=== PATIENT | female | born 1990 | race African-American/Black ===

== ENCOUNTER 2017-01-07 09:08 | Emergency (ER) | payer OTHER ==
[2017-01-07] MEDS ORDERED: Famotidine TAB* 20 MG PO ONE (09:28)
[2017-01-07] MEDS ORDERED: Al Hydrox/Mg Hydrox/Simet LIQ* 30 ML UDC PO ONE ×2 (09:28→09:58)
--- NOTE | 2017-01-07 09:55 | ED ---
Abdominal Pain/Female - HPI Summary HPI Summary: Patient presents to the ED with epigastric pain and nausea x 3 days which is intermittent. She was seen at [facility] and given Pepcid and zofran. She continues with pain and nausea despite the medication. She is concerned with another pathology. Denies diarrhea, constipation. Pain is not worse or better with food. Denies radiation of pain to the back or otherwise. Denies urinary symptoms, pain in all 4 quadrants, or back pain. Denies fevers, sweats or chills. Medication has been improving her nausea, but not the pain. She is unable to describe the pain other than intermittent and sharp. Not worse or better with position. She has been otherwise healthy. Denies hx of GERD or cardiac problems. She takes no other medications. - History of Current Complaint Chief Complaint: EDAbdPain Stated Complaint: ABD PAIN Time Seen by Provider: 01/07/17 09:15 Hx Obtained From: Patient ?: No Onset/Duration: Sudden Onset Timing: Hours Severity Initially: Moderate Severity Currently: Moderate Pain Intensity: 7 Pain Scale Used: 0-10 Numeric Location: Epigastric Radiates: No Character: Sharp Aggravating Factor(s): Nothing Alleviating Factor(s): Nothing Associated Signs and Symptoms: Positive: Nausea, Vomiting - Risk Factors Ectopic Risk Factor: Negative Ovarian Torsion Risk Factor: Negative Allergies/Adverse Reactions: Allergies Allergy/AdvReac Type Severity Reaction Status Date / Time No Known Allergies Allergy Verified 01/07/17 09:14 Home Medications: Home Medications Control 1 tab PO DAILY 01/07/17 [History Confirmed 01/07/17] PMH/Surg Hx/FS Hx/Imm Hx Previously Healthy: Yes - Immunization History Hx Pertussis Vaccination: No Immunizations Up to Date: Unable to Obtain/Confirm Infectious Disease History: No Infectious Disease History: Denies: Traveled Outside the [place] in Last 30 Days - Social History Occupation: Employed Full-time Lives: With Family Alcohol Use: Weekly Alcohol Amount: 3-4 times a week 3-4 drinks at a time Hx Substance Use: No Substance Use Type: Reports: None Hx Tobacco Use: No Smoking Status (MU): Never Smoked Tobacco Review of Systems Constitutional: Negative Negative: Fever, Chills, Fatigue Eyes: Negative ENT: Negative Cardiovascular: Negative Positive: Abdominal Pain - epigastric Genitourinary: Negative Positive: no symptoms reported, see HPI Musculoskeletal: Negative Negative: Arthralgia, Myalgia, Decreased ROM Neurological: Negative Negative: Headache, Weakness, Paresthesia Psychological: Normal All Other Systems Reviewed And Are Negative: Yes Physical Exam - Summary Physical Exam Summary: VITAL SIGNS: Reviewed. GENERAL: Patient is a well-developed and nourished female who is lying comfortable in the stretcher. ~Patient is not in any acute respiratory distress. HEAD AND FACE: Normocephalic and atraumatic. EYES: PERRLA, EOMI x 2, No injected conjunctiva. EARS: Hearing grossly intact. Ear canals and tympanic membranes are WNL. MOUTH: Oropharynx within normal limits. NECK: Supple, trachea is midline, no adenopathy, no JVD. CHEST: Symmetric, no tenderness at palpation LUNGS: Clear to auscultation bilaterally. No wheezing or crackles. CVS: RRR, S1 and S2 present, no murmurs or gallops appreciated. ABDOMEN: Soft, non-tender. No signs of distention. Positive bowel sounds. No rebound no guarding, and no masses palpated. No abdominal bruit or pulsations. EXTREMITIES: FROM in all major joints, no edema, no cyanosis or clubbing. NEURO: Alert and oriented x 3. No acute neurological deficits. Speech is normal. SKIN: Dry and warm Triage Information Reviewed: Yes Vital Signs On Initial Exam: Initial Vitals Temp Pulse Resp BP Pulse Ox 97.5 F 91 20 132/56 100 01/07/17 09:11 01/07/17 09:11 01/07/17 09:11 01/07/17 09:11 01/07/17 09:11 Vital Signs Reviewed: Yes Appearance: Positive: Well-Appearing, Well-Nourished Skin: Positive: Warm, Skin Color Reflects Adequate Perfusion Head/Face: Positive: Normal Head/Face Inspection Eyes: Positive: EOMI, ALEXANDRE, Conjunctiva Clear Neck: Positive: Supple, No Lymphadenopathy Respiratory/Lung Sounds: Positive: Clear to Auscultation, Breath Sounds Present Cardiovascular: Positive: Normal, RRR, Pulses are Symmetrical in both Upper and Lower Extremities Abdomen Description: Positive: Other: - tenderness in the epigastric region Bowel Sounds: Positive: Present Neurological: Positive: Sensory/Motor Intact, Alert, Oriented to Person Place, Time, Speech Normal Psychiatric: Positive: Normal AVPU Assessment: Alert - Talisha Coma Scale Best Eye Response: 4 - Spontaneous Best Motor Response: 6 - Obeys Commands Best Verbal Response: 5 - Oriented Diagnostics - Vital Signs Vital Signs Temp Pulse Resp BP Pulse Ox 01/07/17 09:30 82 129/83 99 01/07/17 09:26 71 99 01/07/17 09:24 137/83 01/07/17 09:11 97.5 F 91 20 132/56 100 - Laboratory Result Diagrams: 01/07/17 10:15 01/07/17 10:15 Lab Statement: Any lab studies that have been ordered have been reviewed, and results considered in the medical decision making process. Abdominal Pain Fem Course/Dx - Course Course Of Treatment: During the course of treatment the patient was given 30ml maalox plus and pepcid 40mg oral. Patient vomited immediately after dispension. She is then given IV zofran, pepcid with effect. After nausea resolved, she is then given maalox 30ml plus. Labs obtained. Discussed treatment options with patient. Encouraged to first obtain labs and given medication to assess for improvement of symptoms without obtaining an image. Patient is OK with this plan and would like to see if medications have imroved the symptoms. Upon re-examination, patient continues to feel nauseous with 9/10 epigastric pain. She would like to proceed at this time with the CT scan. She is given morohine 4mg and compazine 10mg with mild relief. CT abd/pelvis obtained: IMPRESSION: NO ACUTE CT PATHOLOGY OF THE VISUALIZED ABDOMEN OR PELVIS. She is given results. Pain is currently a 2/10 and remains in the epigastric region. Discussed options. She is given rx for maalox, to continue with the pepcid 40mg daily, zofran as needed and given pain medicine for breakthrough pain. Likely this is gastritis and other discussions how to prevent and heal ulcers are discussed with patient. No other findings on exam including CVA tenderness , other quadrant pain, fevers, etc. Patient voices no concerns over discharge and will return if symptoms return. EKG OK. No pain in RUQ and marshall;s negative. - Diagnoses Differential Diagnosis: Positive: Peptic Ulcer Disease, Other - gastritis Provider Diagnoses: Gastritis Discharge - Discharge Plan Condition: Stable Disposition: HOME Prescriptions: Al Hydrox/Mg Hydrox/Simet LIQ* [Maalox Plus*] 30 ml PO Q4H PRN #1 udc PRN Reason: Pain Ondansetron ODT TAB* [Zofran 4 MG Odt TAB*] 4 mg PO Q6H PRN #12 tab.odt MDD 4 PRN Reason: Nausea Oxycodone TAB(NF) [Oxycodone HCl 10 MG] 10 mg PO Q6H PRN #12 tab MDD 4 PRN Reason: Pain Patient Education Materials: Peptic Ulcer (ED), Gastritis (ED), Diet for Stomach Ulcers and Gastritis (ED) Referrals: Juanito Joseph MD [Medical Doctor] - [facility] - [place] L[place]ONO [Primary Care Provider] - Additional Instructions: Please follow up with your PCP If any symptoms becomes worse, return to the ED immediately Do not take any NSAIDS which includes naproxen, ibuprofen, advil, excedrin Seminole diet without spicy foods including acidic floods Maalox Plus (also over the counter) 30ml up to every 4 hours for breakthrough epigastric pain Continue to take Pepcid 40mg (if not already on it) Zofran as needed every 6 hours - under the tongue.
[2017-01-07] MEDS ORDERED: Famotidine IV* 10 MG/ML 2 ML (20 mg) IV SLOW PU ONE (09:57)
[2017-01-07] MEDS ORDERED: Ondansetron INJ* 2 MG/ML VIAL IV ONE (09:58)
[2017-01-07 10:41] LABS: Hematocrit 40 % (35-47); Hemoglobin 13.7 g/dl (12.0-16.0); Mean Corpuscular HGB Conc 34 g/dl (31-36); Mean Corpuscular Hemoglobin 27 pg (27-31); Mean Corpuscular Volume 79 fL (80-97); Mean Platelet Volume 9 um3 (7.4-10.4); Red Blood Count 5.07 10^6/ul (4.0-5.4); Red Cell Distribution Width 13 % (10.5-15); White Blood Count 8.3 10^3/ul (3.5-10.8)
[2017-01-07 10:52] LABS: Albumin 4.1 g/dL (3.2-5.2); BUN/Creatinine Ratio 16.9 (8-20); C Reactive Protein 2.24 mg/L (< 5.00); Calcium 9.1 mg/dL (8.6-10.3); EGFR African American 106.1 (>60); EGFR Non-African American 82.5 (>60); Potassium 3.7 mmol/L (3.5-5.0); Total Bilirubin 0.3 mg/dL (0.2-1.0); Total Protein 7.1 g/dL (6.4-8.9)
[2017-01-07] MEDS ORDERED: PROCHLORPERAZINE INJ 5 MG/ML 2 ML VIAL IV ONE (11:23)
[2017-01-07] MEDS ORDERED: Morphine INJ* 4 MG/ML 1 ML CARPUJECT IV ONE (11:24)
[2017-01-07 11:49] LABS: Urine Bilirubin Negative (Negative); Urine Glucose Negative (Negative); Urine Nitrite Negative (Negative)
[2017-01-07] MEDS ORDERED: Iohexol 300* (CONTRAST) 10 ML SDV IV ONE (13:38)
--- NOTE | 2017-01-07 13:54 | RAD ---
CLINICAL HISTORY: Abdominal pain COMPARISON: None TECHNIQUE: Multiple contiguous axial CT scans were obtained of the abdomen and pelvis after the administration of intravenous contrast. Coronal and sagittal multiplanar reformations are submitted for review. Oral contrast was administered. Delayed images were obtained through the abdomen and pelvis. FINDINGS: LUNG BASES: The lung bases are clear. LIVER: The liver is normal in shape, size, contour, and attenuation. BILE DUCTS: There is no intrahepatic or extrahepatic biliary dilatation. GALLBLADDER: The gallbladder is normal, without pericholecystic inflammatory change. PANCREAS: The pancreas is normal, without mass or ductal dilatation. SPLEEN: Normal in size and appearance. UPPER GI TRACT: Evaluation of the gastrointestinal tract is limited by incomplete gastric distention. The upper GI tract is unremarkable. SMALL BOWEL AND MESENTERY: The small bowel is normal in contour, course, and caliber. There is no obstruction or dilatation. COLON: The colon is normal in contour, course, caliber. There is no pericolonic inflammatory change. There is a tubular, vermiform, hollow viscus that is blind ending, and originates from the cecum, consistent with a normal appendix. There is no periappendiceal inflammatory change. This is best seen on axial images 58 through 63 ADRENALS: Normal bilaterally. KIDNEYS: The kidneys are normal in shape, size, contour, and axis. There is no hydronephrosis or nephrolithiasis. BLADDER: The bladder is smooth in contour. PELVIC ORGANS: The uterus and adnexa are grossly normal for technique. AORTA: The aorta is normal. IVC: Unremarkable LYMPH NODES: There is no lymphadenopathy by size criteria. ABDOMINAL WALL: There is a small fat-containing umbilical hernia BONES AND SOFT TISSUES: Unremarkable OTHER: None IMPRESSION: NO ACUTE CT PATHOLOGY OF THE VISUALIZED ABDOMEN OR PELVIS.
[2017-01-07 14:32] VITALS: BP 134/78
== END 2017-01-07 14:31 | disposition home or self-care (01) ==
LOC: ED 09:08
DX: K29.70 Gastritis, unspecified, without bleeding (principal)
CPT/HCPCS: 36415; 74177; 80053; 81003; 83605; 83690; 84702; 85025; 86140; 93005; 96374; 96375; 99284; A9270-GY; J0780; J2270; J2405; Q9967